=== PATIENT | female | born 1965 | race Caucasian/White ===

== ENCOUNTER 2019-12-08 13:18 | Outpatient (CLI) | payer OTHER ==
--- NOTE | 2019-12-08 14:18 | MMO ---
Left Breast MAMMO Unilat Diag DDI LT+ROMY. CLINICAL HISTORY: Patient is 53 years old and is seen for additional evaluation requested from prior study. The patient has no family history of breast cancer. The patient has no personal history of cancer. VIEWS: The views performed were: left craniocaudal spot compression with tomosynthesis; left mediolateral oblique spot compression with tomosynthesis; and left mediolateral with tomosynthesis. FILMS COMPARED: The present examination has been compared to prior imaging studies performed at [facility] on 11/30/2019, and at [facility] on 12/05/2009, 08/07/2016 and 12/08/2019. This study has been interpreted with the assistance of computer-aided detection. MAMMOGRAM FINDINGS: There are scattered fibroglandular densities. There is a low density, lobular mass measuring 24 millimeters with microlobulated margins seen in the left breast at 12 o'clock. IMPRESSION: MASS IN THE LEFT BREAST IS SUSPICIOUS. AN ULTRASOUND-GUIDED BREAST BIOPSY IS RECOMMENDED. THE RESULTS OF THIS EXAM WERE SENT TO THE PATIENT. ACR BI-RADS Category 4 - Suspicious abnormality - biopsy should be considered MAMMOGRAPHY NOTE: 1. A negative mammogram report should not delay a biopsy if a dominant of clinically suspicious mass is present. 2. Approximately 10% to 15% of breast cancers are not detected by mammography. 3. Adenosis and dense breasts may obscure an underlying neoplasm. Reported by: ANUPAMA CEBALLOS MD Electonically Signed: [id number]
--- NOTE | 2019-12-08 14:43 | ULT ---
LEFT BREAST ULTRASOUND: HISTORY: Left breast mass noted on ultrasound exam. FINDINGS: A lobulated left breast mass is noted at the 12 o'clock position approximately 2 cm from the nipple. The lesion measures 2.1 cm in size. This is somewhat hypoechoic to surrounding breast parenchyma. It has some slightly angular margins and has overall suspicious features. Imaging of the axilla failed to show any enlarged axillary nodes. IMPRESSION: BIRADS category 4 - suspicious finding, biopsy is recommended. These findings were discussed with the patient and then subsequently discussed with Dr. Elan Rivera's nurse. The patient, per Dr. Carter's request, is not being scheduled for an ultrasound-guided bi opsy at this time. CODE CR POS: OFF
== END 2019-12-08 13:19 | disposition home or self-care (01) ==
LOC: BICMAMMO 13:18
PROVIDERS: ATTEND Obstetrics & Gynecology
DX: N63.20 Unspecified lump in the left breast, unspecified quadrant (principal)
CPT/HCPCS: G0279

== ENCOUNTER 2019-12-14 09:59 | Outpatient (CLI) | payer OTHER ==
--- NOTE | 2019-12-14 10:18 | MMO ---
Left Breast MAMMO Unilat Diag DDI LT+ROMY. CLINICAL HISTORY: Patient is 54 years old and is seen for diagnostic exam. The patient has no family history of breast cancer. The patient has no personal history of cancer. VIEWS: The views performed were: left craniocaudal and left mediolateral. FILMS COMPARED: The present examination has been compared to prior imaging studies performed at [facility] on 11/30/2019, and at [facility] on 08/07/2016 and 12/08/2019. This study has been interpreted with the assistance of computer-aided detection. MAMMOGRAM FINDINGS: There are scattered fibroglandular densities. There is a new biopsy clip seen in the left breast. IMPRESSION: NEW BIOPSY CLIP IN THE LEFT BREAST IS CONFIRMED UTILIZING POST PROCEDURE MAMMOGRAM. THE RESULTS OF THIS EXAM WERE SENT TO THE PATIENT. MAMMOGRAPHY NOTE: 1. A negative mammogram report should not delay a biopsy if a dominant of clinically suspicious mass is present. 2. Approximately 10% to 15% of breast cancers are not detected by mammography. 3. Adenosis and dense breasts may obscure an underlying neoplasm. Reported by: ELLY MCKEON MD Electonically Signed: [id number]
== END 2019-12-14 10:00 | disposition home or self-care (01) ==
LOC: BICMAMMO 09:59
PROVIDERS: ATTEND Specialist
DX: N63.20 Unspecified lump in the left breast, unspecified quadrant (principal); Z98.890 Other specified postprocedural states
CPT/HCPCS: G0279

== ENCOUNTER 2020-01-17 08:10 | Day surgery (SDC) | payer OTHER ==
[2020-01-16 09:33] VITALS: BMI 29.5
[2020-01-17] MEDS ORDERED: Succinylcholine Chloride 20 MG/ML 10 ml SYRINGE FS ONE (09:01)
[2020-01-17] MEDS ORDERED: diphenhydrAMINE 50 MG/ML VIAL ONE (09:01)
[2020-01-17] MEDS ORDERED: Lidocaine 1% PF 5 ML VIAL ONE ×2 (09:01)
[2020-01-17] MEDS ORDERED: Ondansetron PF 4 MG/2 ML Vial ONE (09:01)
[2020-01-17] MEDS ORDERED: Dexamethasone 20 MG/5 ML VIAL ONE (09:01)
[2020-01-17] MEDS ORDERED: PROPOFOL 200 MG/20 ML VIAL ONE (09:01)
[2020-01-17] MEDS ORDERED: Ketorolac Tromethamine 30 MG/ML VIAL ONE (10:19)
[2020-01-17] MEDS ORDERED: Acetaminophen 500 MG TAB ONE (10:19)
[2020-01-17 10:47] LABS: #Basophils 0.1 thou/uL (0.0-0.2); #Eosinphils 0.2 thou/uL (0.0-0.7); #Lymphocytes 1.5 thou/uL (1.20-3.40); #Monocytes 0.5 thou/uL (0.11-0.59); #Neutrophils 4.1 thou/uL (1.40-6.50); %Basophils 1.1 % (0.0-1.0); %Lymphocytes 23.2 % (21.0-51.0); %Monocytes 7.5 % (0.0-10.0); %Neutrophils 65.1 % (42.0-75.0); Hemoglobin 15.1 g/dL (12.0-16.0); Mean Corpuscular HGB CONC 34.9 g/dL (32.0-36.0); Mean Corpuscular Hemoglobin 31.4 pg (27.0-31.0); Mean Platelet Volume 7.6 fL (7.4-10.4); Platelet Count 279 thou/uL (130-400); RBC Distribution Width 11.3 % (11.5-14.5); Red Blood Cell (RBC) Count 4.81 mill/uL (4.20-5.40); White Blood Cell (WBC) Count 6.3 thou/uL (4.8-10.8)
[2020-01-17 10:59] LABS: Anion Gap 11 mmol/L (10-20); BUN (Urea Nitrogen) 11 mg/dL (9.8-20.1); Calc. Creatinine Clearance 104 mL/min (70-130); Calcium 9.4 mg/dL (7.8-10.44); Carbon Dioxide 28 mmol/L (22-29); Chloride 107 mmol/L (98-107); Estimated GFR-MDRD 75; Glucose 107 mg/dL (70-105); Potassium 4.4 mmol/L (3.5-5.1); Sodium 142 mmol/L (136-145)
--- NOTE | 2020-01-17 12:10 | NM ---
Lymphoscintigraphy left breast HISTORY: Left breast cancer. FINDINGS: After explaining the procedure and answering all questions, the anterior aspect of the left breast was cleansed. Sterile technique was used to carefully inject a total volume of 1.0 cc containing 423 mCi technetium 99m filtered sulfur colloid in 4 equal aliquots at into the deep dermal tissues at the 12:00, 3:00, 6:00, and 9:00 periareolar position of the left breast. Injection sites were massaged by the pa tient and imaging performed. On the immediate imaging, a focal area of increased radiotracer uptake overlies the axillary tail of the left breast. Patient tolerated the procedure well and was dismissed in good condition. IMPRESSION : Technically successful lymphoscintigraphy left breast showing sentinel lymph node at the axillary suzette l left breast.
[2020-01-17] MEDS ORDERED: Midazolam HCl 2 mg/2 ml Vial ONE (13:09)
[2020-01-17] MEDS ORDERED: Fentanyl 100 MCG/2 ML VIAL ONE (13:09)
[2020-01-17] MEDS ORDERED: Lidocaine 1% w/Epinephrine 1:100K 20 ML VIAL ONE ×2 (13:21→14:43)
[2020-01-17] MEDS ORDERED: Isosulfan Blue 50 MG/5 ML VIAL ONE (13:21)
[2020-01-17] MEDS ORDERED: Bupivacaine 0.25% HCL 30 ML VIAL ONE ×2 (13:21→14:43)
--- NOTE | 2020-01-18 06:37 | OP ---
DATE OF PROCEDURE: 01/17/2020 PREOPERATIVE DIAGNOSIS: Left breast cancer. POSTOPERATIVE DIAGNOSIS: Left breast cancer. PROCEDURE PERFORMED: Left breast ultrasound-guided needle localization, left breast needle localized lumpectomy, and left axillary sentinel lymph node biopsy. ANESTHESIA: General endotracheal. INDICATION: The patient is a 54-year-old white female. I performed a biopsy of a lesion in her upper left breast that proved to be invasive carcinoma. After discussing options for treatment with her, she has elected to proceed at this time with left breast lumpectomy and sentinel lymph node biopsy. DESCRIPTION OF OPERATION: Informed consent was obtained. Patient underwent preoperative lymphoscintigraphy, which revealed sentinel lymph nodes within the left axilla. She was then taken to the operating room, where general endotracheal anesthesia was obtained, patient in supine position. Left breast and axilla were prepped with ChloraPrep and draped in a sterile fashion. 3 mL of Lymphazurin was infiltrated in the periareolar subdermal tissue and massaged for 5 minutes. Attention was then turned to the axilla. Local anesthetic was infiltrated with a mixture of 1% lidocaine with epinephrine and 0.25% Marcaine. A transverse infraaxillary incision was created. Dissection was carried through skin and subcutaneous tissue and the superficial axillary fascia. Neoprobe was utilized to identify areas of maximum radio intensity. I was able to clearly identify 3 separate radioactive sentinel lymph nodes. The first two of these were larger lymph nodes, although by no definitely metastatic. The first of these was the dominant lymph node contained majority of the blue dye as well. Each lymph node was dissected circumferentially and all investing lymphatics were divided between clamps and 3-0 silk ties. Three sentinel lymph nodes were removed and passed off the field for permanent evaluation. The wound was irrigated and meticulous hemostasis was obtained. The incision was closed in layers with 3-0 and 4-0 Monocryl suture. Dermabond was placed externally. Attention was turned to the breast. The location of the skin at about the 12 o'clock radian was mapped in a grid-type fashion on the skin using ultrasound guidance. I then passed a localizing needle in a lateral to medial fashion along the underside of the malignancy. Additional local anesthetic was infiltrated. A transverse incision was created based on the needle insertion and dissection was carried through skin and subcutaneous tissue. Subcutaneous flaps were raised less than a centimeter deep to the skin. Careful dissection was carried out lateral to the malignancy based on the wire insertion. Dissection was carried down underneath the position of the wire as I knew the wire was along the posterior aspect of the cancer. I carefully dissected along the lateral aspects and finally divided from its medial attachments. It was removed intact. Ultrasound was utilized to evaluate the margin of the lesion. There was no gross malignancy visible on the lesion. The anterior margin appeared to potentially be the closest, but did not appear to be involved. Several marking sutures were placed for orientation and the specimen was submitted for specimen mammography. This revealed an obvious clip within the lesion. It was then submitted for permanent pathology. The wound was carefully inspected and meticulous hemostasis was obtained with electrocautery. The wound was irrigated and all irrigant was aspirated. The wound was closed in layers with 3-0 and 4-0 Monocryl. Additional local anesthetic was infiltrated during the closure. Dermabond was placed externally. During the course of the axillary portion of the procedure, it was recognized that there was development of an acute allergic reaction near the posterior aspect of the axillary incision. I was uncertain what the inciting cause was. There was no evidence of allergic reaction over much of the area that had been prepped and therefore the topical prep did not seem to be the culprit. It also was not involved in most of the areas that were treated with local anesthetic. To make sure of this, I infiltrated additional local anesthetic, the two types and infiltrating them separately inferior to the breast with skin markers. It was noted later in the case that there was no reaction to either of these sites. It was also felt that it was possible that it was a reaction to my gloves as I was using latex gloves. I changed my gloves and wiped off the skin in this area after the sentinel lymph node biopsy. Additionally, the patient was given 50 mg of Benadryl as well as some steroids by Anesthesia. When this area was inspected at the end of the case, it had become confluent but seemed to be resolving. When I checked it in the recovery room, it had completely resolved. I cannot definitively say what it is that cause this fairly localized topical allergic reaction. The patient tolerated the procedure well and was taken to recovery room in stable condition. Job ID: [id number]
== END 2020-01-17 17:50 | disposition home or self-care (01) ==
LOC: SDC 08:10
PROVIDERS: ATTEND Specialist
PROC: 07B60ZX Excision of Left Axillary Lymphatic, Open Approach, Diagnostic (ICD-10-PCS; principal; 2020-01-17)
PROC: 0HBU0ZZ Excision of Left Breast, Open Approach (ICD-10-PCS; principal; 2020-01-17)
DX: C50.812 Malignant neoplasm of overlapping sites of left female breast (principal); Z79.899 Other long term (current) drug therapy; Z17.0 Estrogen receptor positive status [ER+]
CPT/HCPCS: 36415; 76098; 78195; 80048; 85025; 88307; 88342; A9541; J0690; J1100; J1200; J1885; J2001; J2250; J2405; J2704; J3010; Q9968; S0020

== ENCOUNTER 2020-09-19 09:58 | Outpatient (CLI) | payer OTHER ==
--- NOTE | 2020-09-19 11:55 | BD ---
BONE DENSITOMETRY USING DEXA: Date: 09/19/2020 HISTORY: Postmenopausal screening for osteoporosis. FINDINGS: Lumbar Spine: BMD (g/cm2) L1 1.124 T-Score: 1.2 Z-Score: 2.3 L2 1.174 T-Score: 1.3 Z-Score: 2.5 L3 1.263 T-Score: 1.6 Z-Score: 2.9 L4 1.192 T-Score: 1.2 Z-Score: 2.4 L1-L4 1.190 T-Score: 1.3 Z-Score: 2.5 Femoral Neck: 0.810 T-Score: -0.4 Z-Score: 0.8 Total Femur: 1.004 T-Score: 0.5 Z-Score: 1.3 IMPRESSION: Normal bone mineral density. POS: OFF
== END 2020-09-19 09:59 | disposition home or self-care (01) ==
LOC: BICMAMMO 09:58
PROVIDERS: ATTEND Internal Medicine Hematology & Oncology
DX: N95.8 Other specified menopausal and perimenopausal disorders (principal); C50.212 Malignant neoplasm of upper-inner quadrant of left female breast
CPT/HCPCS: 77080

== ENCOUNTER 2021-01-16 10:07 | Outpatient (CLI) | payer OTHER | END 2021-01-16 10:08 | disposition home or self-care (01) | LOC: BICMAMMO 10:07 | PROVIDERS: ATTEND Specialist | DX: C50.912 Malignant neoplasm of unspecified site of left female breast (principal) | CPT/HCPCS: 77066; G0279 ==

== ENCOUNTER 2021-08-27 09:39 | Outpatient (CLI) | payer OTHER ==
[2021-08-27] MEDS ORDERED: Iopamidol 370 76% 100 ML VIAL ONE (11:31)
== END 2021-08-27 09:40 | disposition home or self-care (01) ==
LOC: BICCT 09:39
PROVIDERS: ATTEND Internal Medicine Hematology & Oncology
DX: C50.212 Malignant neoplasm of upper-inner quadrant of left female breast (principal); R63.4 Abnormal weight loss; R10.9 Unspecified abdominal pain; Z14.8 Genetic carrier of other disease
CPT/HCPCS: 74160; Q9967

== ENCOUNTER 2021-08-29 14:07 | Outpatient (CLI) | payer OTHER | END 2021-08-29 14:08 | disposition home or self-care (01) | LOC: BICMRI 14:07 | PROVIDERS: ATTEND Specialist | DX: C50.912 Malignant neoplasm of unspecified site of left female breast (principal) | CPT/HCPCS: A9577; C8908 ==

== ENCOUNTER 2024-09-13 09:33 | Outpatient (CLI) | payer OTHER | END 2024-09-13 09:34 | disposition home or self-care (01) | LOC: BICMRI 09:33 | PROVIDERS: ATTEND Internal Medicine Hematology & Oncology | DX: C50.212 Malignant neoplasm of upper-inner quadrant of left female breast (principal); Z14.8 Genetic carrier of other disease | CPT/HCPCS: 36415; 82565; A9577; C8908 ==